=== PATIENT | female | born 1975 | race Caucasian/White ===

== ENCOUNTER 2019-07-03 19:38 | Emergency (ER) | payer OTHER ==
[~2019-07-03] VITALS: Ht 167.6 cm; Wt 79.8 kg
[2019-07-03 19:54] VITALS: BP 139/95
--- NOTE | 2019-07-03 21:49 | NUR ---
Patient discharged to home in stable condition. Written and verbal after care instructions given. Patient verbalizes understanding of instruction. Pt ambulatory with a steady gait
== END 2019-07-03 21:50 | disposition home or self-care (01) ==
LOC: ER 19:41
DX: R20.3 Hyperesthesia (principal); Z98.890 Other specified postprocedural states